=== PATIENT | male | born 1950 | race Caucasian/White ===

== ENCOUNTER → 2021-03-12 | Day surgery (SDC) | payer OTHER ==
[~2021-03-12] MED LIST: 0.9 % SODIUM CHLORIDE 10 ML VIAL. ONE; DEXAMETHASONE SOD PHOS 10 MG/ML VIAL. ONE; IOHEXOL 300 MG/ML 50 ML VIAL. ONE; LIDOCAINE 1% PF 30 ML VIAL. ONE; LISI40TA6 PO; NAPR-683 PO; TRAM50TA PO
[2021-03-12 13:35] VITALS: BP 148/74
== END | disposition home or self-care (01) ==
LOC: SURG 12:48
PROVIDERS: ATTEND Anesthesiology
DX: M54.16 Radiculopathy, lumbar region (principal); G89.29 Other chronic pain; M25.552 Pain in left hip; I10 Essential (primary) hypertension; J44.9 Chronic obstructive pulmonary disease, unspecified; K21.9 Gastro-esophageal reflux disease without esophagitis; Z98.890 Other specified postprocedural states; Z79.899 Other long term (current) drug therapy
CPT/HCPCS: 62323; 99204; J1100; Q9967; G0463